=== PATIENT | male | born 1965 | race Caucasian/White ===

== ENCOUNTER 2017-03-13 17:19 | Emergency (ER) | payer BC ==
[2017-03-13 17:26] VITALS: BP 163/103; PULSE 98; TEMP 98.5; BMI 28.6
--- NOTE | 2017-03-13 17:36 | PDOC ---
History of Present Illness - General Chief Complaint: Laceration Stated Complaint: LEFT HAND INJURY Time Seen by Provider: 03/13/17 17:35 Past History - Past Medical History Allergies/Adverse Reactions: Allergies Allergy/AdvReac Type Severity Reaction Status Date / Time No Known Drug Allergies Allergy Verified 03/13/17 17:26 Home Medications: Ambulatory Orders Diphenhydramine HCl [Benadryl Capsule -] 25 mg PO HS 02/13/16 [place]-3 Acid Ethyl Esters [Lovaza -] 1 gm PO HS 02/13/16 Ibuprofen 800 mg PO PRN PRN 02/18/16 Oxycodone HCl/Acetaminophen [Percocet 5-325 mg Tablet -] 1 - 2 tab PO Q6H #60 tab MDD 8 02/18/16 - Surgical History Appendectomy: Yes Orthopedic Surgery: Yes (LEFT SHOULDER) - Psycho/Social/Smoking Cessation Hx Suicidal Ideation: No Smoking History: Never smoked Have you smoked in the past 12 months: No If you are a former smoker, when did you quit?: 15YRS Hx Alcohol Use: Yes (SOCIAL) Drug/Substance Use Hx: No Substance Use Type: None Hx Substance Use Treatment: No *Physical Exam - Vital Signs Last Vital Signs Temp Pulse Resp BP Pulse Ox 98.5 F 98 H 20 163/103 98 03/13/17 17:23 03/13/17 17:23 03/13/17 17:23 03/13/17 17:23 03/13/17 17:23
[2017-03-13] MEDS ORDERED: DIPHTH,PERTUSS(ACELL),TET 0.5 ML DISP.SYRIN IM ONE (17:48)
--- NOTE | 2017-03-13 18:32 | PDOC ---
Attending Attestation - Resident Resident Name: Amber Shannon - HPI HPI: 03/13/17 18:28 51 yo male sustained a linear 2.6 cm on the volar surface of his left thumb and a very superficial laceration on the right thumb that was closed w dermabond -tetanus is up to date - Physicial Exam PE: 03/13/17 18:32 2.6cm linear laceration to the tip of left thumb -NO neurovacular deficits -bleeding controlled -cap refill < 2 seconds - Medical Decision Making 03/13/17 18:33 wound cleansed w sterile saline closed with 4.0 proline discharged home
--- NOTE | 2017-03-13 18:40 | PDOC ---
History of Present Illness - General Chief Complaint: Laceration Stated Complaint: LEFT HAND INJURY Time Seen by Provider: 03/13/17 17:35 History Source: Patient Exam Limitations: No Limitations - History of Present Illness Initial Comments: 51 yo male with noncontributory PMH presents 30 minutes after cutting both thumb pads on an open tuna can. He was rinsing the can when he accidentally gripped it too hard and it slipped, lacerating his left thumb in a 2-3 cm laceration, and causing a 0.5 cm avulsion on the right thumb. The left thumb bled until he arrived here in the ED. He denies any numbness, tingling, or weakness in either thumb, and denies any additional injuries. He does not believe any debris got into either wound. He has no h/o bleeding disorders, and cannot remember the exact date of his last tetanus immunization but believes he is up to date. Past History - Past Medical History Allergies/Adverse Reactions: Allergies Allergy/AdvReac Type Severity Reaction Status Date / Time No Known Drug Allergies Allergy Verified 03/13/17 17:26 Home Medications: Ambulatory Orders Diphenhydramine HCl [Benadryl Capsule -] 25 mg PO HS 02/13/16 [place]-3 Acid Ethyl Esters [Lovaza -] 1 gm PO HS 02/13/16 Ibuprofen 800 mg PO PRN PRN 02/18/16 Oxycodone HCl/Acetaminophen [Percocet 5-325 mg Tablet -] 1 - 2 tab PO Q6H #60 tab MDD 8 02/18/16 - Surgical History Appendectomy: Yes Orthopedic Surgery: Yes (LEFT SHOULDER) - Psycho/Social/Smoking Cessation Hx Suicidal Ideation: No Smoking History: Never smoked Have you smoked in the past 12 months: No If you are a former smoker, when did you quit?: 15YRS Hx Alcohol Use: Yes (SOCIAL) Drug/Substance Use Hx: No Substance Use Type: None Hx Substance Use Treatment: No Review of Systems - Review of Systems Able to Perform ROS?: Yes Constitutional: No: Chills, Fever, Unexplained wgt Loss HEENTM: No: Nose Congestion, Throat Pain Respiratory: No: Cough, Shortness of Breath Cardiac (ROS): No: Chest Pain, Palpitations ABD/GI: No: Constipated, Diarrhea, Nausea, Vomiting : No: Burning, Dysuria Musculoskeletal: No: Back Pain, Neck Pain Integumentary: Yes: Other (left thumb laceration, right thumb skin tear). No: Bruising, Rash Neurological: No: Headache, Numbness, Tingling, Weakness, Dizziness Endocrine: No: Unexplained Weight Gain, Unexplained Weight Loss *Physical Exam - Vital Signs Last Vital Signs Temp Pulse Resp BP Pulse Ox 98.5 F 98 H 20 163/103 98 03/13/17 17:23 03/13/17 17:23 03/13/17 17:23 03/13/17 17:23 03/13/17 17:23 - Physical Exam General Appearance: Yes: Nourished. No: Apparent Distress HEENT: positive: EOMI, Normal Voice, Hearing Grossly Normal. negative: Scleral Icterus (R), Scleral Icterus (L), Nasal Congestion Neck: positive: Trachea midline, Supple. negative: Tender, Rigid Respiratory/Chest: positive: Lungs Clear, Normal Breath Sounds. negative: Respiratory Distress, Crackles, Rhonchi, Stridor, Wheezing Cardiovascular: positive: Regular Rhythm, Regular Rate. negative: Murmur Gastrointestinal/Abdominal: positive: Normal Bowel Sounds, Soft. negative: Tender, Organomegaly, Pulsatile Mass, Guarding Musculoskeletal: positive: Normal Inspection. negative: Decreased Range of Motion, Vertebral Tenderness Extremity: positive: Normal Capillary Refill, Normal Inspection, Normal Range of Motion. negative: Tender, Cyanosis Integumentary: positive: Normal Color, Dry, Warm, Other (2.6 cm partial thickness linear laceration to left thumb pad without involvement of the nail or nailbed, 0.5 x 0.3 cm superficial skin avulsion to right thumb pad, both are hemostatic). negative: Erythema, Rash, Bruising Neurologic: positive: internal control consultant II-XII NML intact, Fully Oriented, Alert, Normal Mood/ Affect, Normal Response, Motor Strength 5/5, Other (radial, median, and ulnar nerves intact, sensation intact to all fingertips and thumbs) Procedures - Laceration/Wound Repair Left Anterior 1st digit Wound Length: 2.6 to 5.0 cm Wound Explored: clean, no foreign body present Wound's Depth, Shape: linear Irrigated w/ Saline: Yes Betadine Prep: No Anesthesia: 1% Lidocaine Amount of Anesthetic (ccs): 3 Wound Repaired With: Sutures Suture Size/Type: 4:0, proline Number of Sutures: 5 Layer Closure: No ED Treatment Course - Medications Given in the ED: ED Medications Discontinued Medications Generic Name Dose Route Start Last Admin Trade Name Kei PRN Reason Stop Dose Admin Diphtheria/Tetanus/Acell Pertussis 0.5 ml 03/13/17 17:48 03/13/17 18:07 Boostrix - IM 03/13/17 17:49 0.5 ml .ONCE ONE Administration Medical Decision Making - Medical Decision Making 51 yo male with 2.6 cm laceration to left thumb pad. Partial thickness and requiring laceration repair. Pt is neurovascularly intact before procedure. Tetanus is updated. Left thumb laceration anesthetized and repaired with #5 4-0 Prolene without issue. Pt tolerated the procedure well. Good cap refill and still neurovascularly intact after procedure. Discharged home with wound care instructions. *DC/Admit/Observation/Transfer Diagnosis at time of Disposition: Laceration of thumb without complication Qualifiers: Encounter type: initial encounter Laterality: left Qualified Code(s): S61.012A - Laceration without foreign body of left thumb without damage to nail, initial encounter - Discharge Dispostion Disposition: HOME Condition at time of disposition: Stable Admit: No - Patient Instructions Printed Discharge Instructions: DI for Laceration Repair Additional Instructions: You were seen today for a left thumb laceration and a small right thumb skin tear. We repaired the left thumb laceration with 5 non-absorbable sutures, and we put glue and a steri-strip on the right thumb skin tear. We also gave you a tetanus shot. Please keep the cuts clean and dry. You can bandage them during the day, but be sure to let them air out at night. Please see your PCP to have the sutures removed in 10-14 days, or come back to the emergency room for any swelling, increased pain, drainage of pus, redness, fever, or signs of infection. You can put bacitracin on the left thumb as well. - Attestations Physician Attestion: 03/13/17 19:38 I, Dr. Amber Shannon, attest that this document has been prepared under my direction and personally reviewed by me in its entirety. I further attest, that it accurately reflects all work, treatment, procedures and medical decision -making performed by me.
== END 2017-03-13 19:00 | disposition home or self-care (01) ==
LOC: JERFT 17:19
PROC: 0HQGXZZ Repair Left Hand Skin, External Approach (ICD-10-PCS; principal; 2017-03-13)
PROC: 3E0234Z Introduction of Serum, Toxoid and Vaccine into Muscle, Percutaneous Approach (ICD-10-PCS; 2017-03-13)
DX: S61.012A Laceration without foreign body of left thumb without damage to nail, initial encounter (principal); W26.8XXA Contact with other sharp object(s), not elsewhere classified, initial encounter; Y93.G1 Activity, food preparation and clean up; Y92.010 Kitchen of single-family (private) house as the place of occurrence of the external cause
CPT/HCPCS: 90715; 99281-25

== ENCOUNTER 2018-10-09 19:07 | Emergency (ER) | payer BC ==
--- NOTE | 2018-10-09 19:19 | PDOC ---
History of Present Illness - General History Source: Patient Exam Limitations: No Limitations - History of Present Illness Initial Comments: 10/09/18 19:49 The patient is a 52 year old male, with no significant past medical history of who presents to the emergency department with 3 episodes of severe right flank pain that radiates from the lower abdomen to the back. The patient reports these symptoms started a month ago but would go away after a few days, however, patient notes his symptoms started heavy again yesterday and feel like cramping pain. The patient notes the pain is associated with dysuria. The patient notes the pain is so severe that he can not cough or use the bathroom. The patient notes the pain is worsened with movement and deep breathing. The patient denies chest pain, shortness of breath, headache or dizziness. The patient denies fever, chills, diarrhea or constipation. The patient denies frequency, urgency and hematuria. Allergies: NKA Past surgical history: Appendectomy and Orthopedic Surgery (L shoulder) Social history: Occasional alcohol use. No tobacco use (quit 15 years ago) PCP: Dr. Henrry Ortiz <Grace Balbuena - Last Filed: 10/09/18 23:00> <Ciara Lee - Last Filed: 10/10/18 01:14> - General Chief Complaint: Pain Stated Complaint: RIGHT FLANK PAIN Time Seen by Provider: 10/09/18 19:14 Past History <Grace Balbuena - Last Filed: 10/09/18 23:00> - Surgical History Appendectomy: Yes Orthopedic Surgery: Yes (LEFT SHOULDER) - Suicide/Smoking/Psychosocial Hx Smoking History: Never smoked Have you smoked in the past 12 months: No If you are a former smoker, when did you quit?: 15YRS Hx Alcohol Use: Yes (SOCIAL) Drug/Substance Use Hx: No Substance Use Type: None Hx Substance Use Treatment: No <Ciara Lee - Last Filed: 10/10/18 01:14> - Past Medical History Allergies/Adverse Reactions: Allergies Allergy/AdvReac Type Severity Reaction Status Date / Time No Known Drug Allergies Allergy Verified 10/09/18 19:16 Home Medications: Ambulatory Orders Amox-Tr/K Cl [Augmentin - 875Mg Tablet] 1 tab PO BID #20 tablet 10/09/18 Review of Systems - Review of Systems Able to Perform ROS?: Yes Comments:: 10/09/18 19:59 GENERAL/CONSTITUTIONAL: No fever or chills. No weakness. HEAD, EYES, EARS, NOSE AND THROAT: No change in vision. No ear pain or discharge. No sore throat. CARDIOVASCULAR: No chest pain or shortness of breath. RESPIRATORY: No cough, wheezing, or hemoptysis. GASTROINTESTINAL: (+) nausea, (+)vomiting. No diarrhea or constipation. GENITOURINARY:(+) dysuria. No frequency, or change in urination. MUSCULOSKELETAL: (+) right flank pain. No joint or muscle swelling. No neck pain. SKIN: No rash NEUROLOGIC: No headache, vertigo, loss of consciousness, or change in strength/ sensation. ENDOCRINE: No increased thirst. No abnormal weight change. HEMATOLOGIC/LYMPHATIC: No anemia, easy bleeding, or history of blood clots. ALLERGIC/IMMUNOLOGIC: No hives or skin allergy. All Other Systems: Reviewed and Negative <Grace Balbuena - Last Filed: 10/09/18 23:00> *Physical Exam - Vital Signs Last Vital Signs Temp Pulse Resp BP Pulse Ox 98.4 F 120 H 18 150/87 97 10/09/18 19:14 10/09/18 19:14 10/09/18 19:14 10/09/18 19:14 10/09/18 19:14 - Physical Exam Comments: 10/09/18 19:59 GENERAL: Awake, alert, and fully oriented, in no acute distress HEAD: No signs of trauma EYES: PERRLA, EOMI, sclera anicteric, conjunctiva clear ENT: Auricles normal inspection, hearing grossly normal, nares patent, oropharynx clear without exudates. Moist mucosa NECK: Normal ROM, supple, no lymphadenopathy, JVD, or masses LUNGS: Breath sounds equal, clear to auscultation bilaterally. No wheezes, and no crackles HEART: Regular rate and rhythm, normal S1 and S2, no murmurs, rubs or gallops ABDOMEN: (+) moderat Periumbilical tenderness with positive rebound tenderness. Soft, nontender, normoactive bowel sounds. No guarding. No masses EXTREMITIES:(+) tri ankle edema bilaterally. Normal range of motion, No clubbing or cyanosis. No cords, erythema, or tenderness NEUROLOGICAL: Cranial nerves II through XII grossly intact. Normal speech, normal gait SKIN: Warm, Dry, normal turgor, no rashes or lesions noted. <Grace Balbuena - Last Filed: 10/09/18 23:00> Moderate Sedation - Procedure Monitoring Vital Signs: Procedure Monitoring Vital Signs Temperature 98.4 F 10/09/18 19:14 Pulse Rate 120 H 10/09/18 19:14 Respiratory Rate 18 10/09/18 19:14 Blood Pressure 150/87 10/09/18 19:14 O2 Sat by Pulse Oximetry (%) 97 10/09/18 19:14 <Grace Balbuena - Last Filed: 10/09/18 23:00> ED Treatment Course - LABORATORY CBC & Chemistry Diagram: 10/09/18 19:48 10/09/18 19:48 - ADDITIONAL ORDERS Additional order review: Laboratory Results 10/09/18 19:23 Urine Color Yellow Urine Appearance Clear Urine pH 6.0 Ur Specific [place] 1.025 Urine Protein Negative Urine Glucose (UA) Negative Urine Ketones Negative Urine Blood Negative Urine Nitrite Negative Urine Bilirubin Negative Urine Urobilinogen 0.2 Ur Leukocyte Esterase Negative <Grace Balbuena - Last Filed: 10/09/18 23:00> - LABORATORY CBC & Chemistry Diagram: 10/09/18 19:48 10/09/18 19:48 <Ciara Lee - Last Filed: 10/10/18 01:14> Progress Note - Progress Note Progress Note: Documentation has been prepared under my direction and personally reviewed by me in its entirety. I attest that this documented accurately reflects all work, treatment, procedures and medical decision making performed by me. <Ciara Lee - Last Filed: 10/10/18 01:14> Medical Decision Making - Medical Decision Making As noted above, this 52-year-old man presents with intermittent abdominal pain for the last 3 weeks. Previous episodes resolve spontaneously but patient had recurrent, severe right flank to mid abdominal pain starting yesterday. No previous episode of this type of pain in the denies any previous gastrointestinal issues. Exam as noted. 1 L or normal saline IV given along with 30 mg of Toradol IV for pain control Laboratory evaluation is essentially normal, except for mild prerenal azotemia ( BUN 22/cre1) and mild elevation of ALT (65) Abdominal/pelvic CT with IV contrast performed: Interpretation by Dr. Lee of the radiology staff revealed uncomplicated acute sigmoid diverticulitis area no evidence of abscess or perforation. Results discussed with the patient and his . He is currently comfortable and has no nausea. He is a good candidate for outpatient treatment of his non- complicated acute diverticulitis episode. Patient has no known ALLERGIES or adverse effects from any antibiotic. Patient will be started on Augmentin 875/ 125 twice a day for 10 days. First dose was given here in the emergency room. Patient's has been seen in the past by Dr. Meredith for gastroenterology. Referral information provided to the patient; patient should follow-up within the next 5-7 days. If he has any worsening of pain, high fever or vomiting, should return to the emergency room. <iCara Lee - Last Filed: 10/10/18 01:14> *DC/Admit/Observation/Transfer - Attestations Scribe Attestion: 10/09/18 19:59 Documentation prepared by Grace Balbuena, acting as medical pathology teacher for Ciara Lee MD <Grace Balbuena - Last Filed: 10/09/18 23:00> <Ciara Lee - Last Filed: 10/10/18 01:14> Diagnosis at time of Disposition: Acute diverticulitis - Discharge Dispostion Disposition: HOME Condition at time of disposition: Stable - Prescriptions Prescriptions: Amox-Tr/K Cl [Augmentin - 875Mg Tablet] 1 tab PO BID #20 tablet - Referrals Referrals: Nancy Meredith MD [Staff Physician] - 1 week - Patient Instructions Printed Discharge Instructions: Diverticulitis Additional Instructions: Rest; drink plenty fluids Diet as tolerated; avoid complex, high fat foods Augmentin 875/125 twice a day for 10 days; take with food Ibuprofen/acetaminophen/naproxen as needed for pain Return to ER if you have severe, persistent pain/high fever/vomiting Follow-up with Dr Meredith within the next 7 days - Post Discharge Activity
[2018-10-09 19:30] LABS: URINE APPEARANCE Clear; URINE BILIRUBIN Negative (NEGATIVE); URINE COLOR Yellow; URINE GLUCOSE (UA) Negative (NEGATIVE); URINE KETONE Negative (NEGATIVE); URINE LEUK ESTERASE Negative (NEGATIVE); URINE NITRITE Negative (NEGATIVE); URINE PROTEIN Negative (NEGATIVE); URINE UROBILINOGEN 0.2 (0.2-1.0)
[2018-10-09 19:33] VITALS: TEMP 98.4; BMI 27.3
[2018-10-09] MEDS ORDERED: SODIUM CHLORIDE 1,000 ML IV STA (19:37)
[2018-10-09] MEDS ORDERED: KETOROLAC TROMETHAMINE 30 MG/1 ML VIAL IVPUSH ONE (19:37)
[2018-10-09] MEDS ORDERED: KETOROLAC TROMETHAMINE 30 MG/1 ML VIAL ONE (19:49)
[2018-10-09 20:07] LABS: BASO % 1.5 % (0-2.0); EOS % 0.2 % (0-4.5); HEMATOCRIT 45.5 % (35.4-49); HEMOGLOBIN 15.2 GM/dl (11.7-16.9); LYMPH % 15.3 % (8-40); MCH 31.7 pg (25.7-33.7); MCHC 33.4 g/dl (32.0-35.9); MEAN PLT VOLUME 8.1 fl (7.5-11.1); MONO % 6.1 % (3.8-10.2); NEUT % 76.9 % (42.8-82.8); PLATELET COUNT 201 K/MM3 (134-434); RBC 4.79 M/mm3 (4.00-5.60); RDW 12.2 % (11.9-15.9); WHITE BLOOD COUNT 9.1 K/mm3 (4.0-10.8)
[2018-10-09 20:15] LABS: INR 1.22 (0.82-1.09); PROTHROMBIN TIME (PATIENT) 13.6 SEC (10.2-13.0)
[2018-10-09 20:16] LABS: ALBUMIN 4.1 g/dl (3.4-5.0); ALK PHOS 22 U/L (45-117); ANION GAP 6 MMOL/L (8-16); BILIRUBIN,TOTAL 0.8 mg/dl (0.2-1); BLOOD UREA NITROGEN 20 mg/dl (7-18); CHLORIDE 99 mmol/L (98-107); CO2 30 mmol/L (21-32); CREATININE 1.1 mg/dl (0.55-1.3); GLUCOSE,RANDOM 105 mg/dl (74-106); POTASSIUM 3.6 mmol/L (3.5-5.1); SGOT/AST 25 U/L (15-37); SGPT/ALT 63 U/L (13-61); SODIUM 135 mmol/L (136-145); TOT PROT 6.9 g/dl (6.4-8.2)
[2018-10-09 21:19] LABS: LIPASE 133 U/L (73-393)
[2018-10-09] MEDS ORDERED: cefTRIAXone SODIUM 1 GM VIAL ONE (21:58)
[2018-10-09] MEDS ORDERED: CEFTRIAXONE 1,000 MG in DEXTROSE 5%-WATER - 50 ML IVPB ONE (22:06)
[2018-10-09 22:19] VITALS: BP 131/87; PULSE 84
== END 2018-10-09 22:53 | disposition home or self-care (01) ==
LOC: FER 19:07
PROC: 3E03329 Introduction of Other Anti-infective into Peripheral Vein, Percutaneous Approach (ICD-10-PCS; principal; 2018-10-09)
PROC: 3E0333Z Introduction of Anti-inflammatory into Peripheral Vein, Percutaneous Approach (ICD-10-PCS; 2018-10-09)
PROC: 3E0337Z Introduction of Electrolytic and Water Balance Substance into Peripheral Vein, Percutaneous Approach (ICD-10-PCS; 2018-10-09)
DX: K57.92 Diverticulitis of intestine, part unspecified, without perforation or abscess without bleeding (principal)
CPT/HCPCS: 36415; 74177-TC; 80053; 81003; 82150; 83690; 85025; 85610; 99282-25; J7030

== ENCOUNTER 2021-08-13 02:19 | Emergency (ER) | payer BC ==
[2021-08-13 02:51] VITALS: BP 149/89; PULSE 88; TEMP 98.8; BMI 28.1
== END 2021-08-13 04:32 | disposition home or self-care (01) ==
LOC: JER 02:19
DX: G47.00 Insomnia, unspecified (principal); U09.9 Post COVID-19 condition, unspecified
CPT/HCPCS: 87804; 87807; 93005; 93010; 99284-25; C9803; U0003; U0005

== ENCOUNTER 2022-05-17 11:54 | Emergency (ER) | payer BC ==
[2022-05-17 12:10] VITALS: BP 154/91; PULSE 85; RESP 20; TEMP 99.6; BMI 28.1
[2022-05-17 12:51] LABS: INR 0.97 (0.83-1.09); PROTHROMBIN TIME (PATIENT) 11.2 SEC (9.7-13.0)
[2022-05-17 12:53] LABS: ACTIVATED PTT 30.7 SECONDS (25.2-36.5)
[2022-05-17 12:58] LABS: BILIRUBIN,TOTAL 0.7 mg/dl (0.2-1); TOT PROT 6.7 g/dl (6.4-8.2)
[2022-05-17 13:21] LABS: HEMATOCRIT 50.3 % (35.4-49); HEMOGLOBIN 17.7 G/dL (11.7-16.9); MCH 33.2 pg (25.7-33.7); MCHC 35.1 g/dl (32.0-35.9); MEAN CELL VOLUME 94.6 fl (80-96); MEAN PLT VOLUME 7.7 fl (7.5-11.1); PLATELET COUNT 165.7 10^3/uL (134-434); RBC 5.32 10^6/uL (4.00-5.60); RDW 13.1 % (11.9-15.9); WHITE BLOOD COUNT 6.5 10^3/uL (4.0-10.8)
[2022-05-17] MEDS ORDERED: SODIUM CHLORIDE 1,000 ML IV STA (13:56)
[2022-05-17 15:28] LABS: PLATELET ESTIMATE ADEQUATE
== END 2022-05-17 15:21 | disposition home or self-care (01) ==
LOC: FER 11:54
DX: R07.9 Chest pain, unspecified (principal); R20.2 Paresthesia of skin; R42 Dizziness and giddiness
CPT/HCPCS: 36415; 70450-TC; 71045-TC-FY; 80053; 84484; 85027; 85610; 85730; 93005; 99285-25; C9803-CS; U0003; U0005

== ENCOUNTER 2024-09-27 18:47 | Observation (INO) | payer BC ==
[2024-09-27] MEDS: SODIUM CHLORIDE 0.9% 500 ML INFUS.BAG IV ONE (20:21)
[2024-09-27 20:25] LABS: BASO % 0.6 % (0-2.0); EOS % 1.2 % (0-4.5); HEMATOCRIT 45.7 % (35.4-49); LYMPH % 26.7 % (8-40); MCH 32.1 pg (25.7-33.7); MEAN CELL VOLUME 91.7 fl (80-96); MEAN PLT VOLUME 7.6 fl (7.5-11.1); MONO % 6.4 % (3.8-10.2); NEUT % 65.1 % (42.8-82.8); PLATELET COUNT 208 10^3/uL (134-434); RBC 4.99 M/mm3 (4.00-5.60); RDW 12.9 % (11.9-15.9); WHITE BLOOD COUNT 8.2 K/mm3 (4.0-10.0)
[2024-09-27 20:28] LABS: INR 1.05 (0.83-1.09); PROTHROMBIN TIME (PATIENT) 11.6 SEC (9.7-13.0)
[2024-09-27 20:30] LABS: ACTIVATED PTT 29.7 SECONDS (25.2-36.5)
[2024-09-27 20:45] LABS: POTASSIUM 3.6 mmol/L (3.5-5.1)
[2024-09-27 20:49] LABS: ALBUMIN 3.8 g/dl (3.4-5.0); BLOOD UREA NITROGEN 19.3 mg/dL (7-18)
[2024-09-27 20:54] LABS: BILIRUBIN,TOTAL 0.5 mg/dL (0.2-1); TOT PROT 6.7 g/dl (6.4-8.2)
[2024-09-27 21:39] LABS: HIV INTERPRETATION NEGATIVE (NEGATIVE)
[2024-09-27] MEDS: DEXTROSE 5%-0.45% SALINE 1,000 ML IV SCH (22:21)
[2024-09-28] MEDS: amLODIPine BESYLATE 5 MG TABLET (FP) PO ONE (03:09)
[2024-09-28 03:26] VITALS: RESP 19; BMI 29.2
[2024-09-28 08:20] LABS: BASO % 0.4 % (0-2.0); EOS % 1.3 % (0-4.5); HEMATOCRIT 44.5 % (35.4-49); HEMOGLOBIN 15.1 GM/dL (11.7-16.9); LYMPH % 31.7 % (8-40); MCH 31.8 pg (25.7-33.7); MCHC 33.9 g/dl (32.0-35.9); MEAN CELL VOLUME 93.6 fl (80-96); MONO % 6.9 % (3.8-10.2); NEUT % 59.7 % (42.8-82.8); PLATELET COUNT 185 10^3/uL (134-434); RBC 4.75 M/mm3 (4.00-5.60); WHITE BLOOD COUNT 6.8 K/mm3 (4.0-10.0)
[2024-09-28 08:28] LABS: POTASSIUM 3.6 mmol/L (3.5-5.1)
[2024-09-28 08:29] LABS: CALCIUM 8.1 mg/dL (8.5-10.1)
[2024-09-28 08:30] LABS: BLOOD UREA NITROGEN 16.7 mg/dL (7-18)
[2024-09-28 08:33] LABS: CREATININE 0.9 mg/dL (0.55-1.3)
[2024-09-28 14:48] VITALS: BP 142/94; PULSE 89; TEMP 98.2
[2024-09-29] MEDS ORDERED: TAMSULOSIN HCL 0.4 MG CAP PO SCH (08:30)
== END 2024-09-28 17:25 | disposition home or self-care (01) ==
LOC: JER 18:47 → JERBED 20:20 → J8W 09-28 00:26
PROVIDERS: ADMIT Internal Medicine; ATTEND Family Medicine
PROC: 3E0337Z Introduction of Electrolytic and Water Balance Substance into Peripheral Vein, Percutaneous Approach (ICD-10-PCS; principal; 2024-09-27)
DX: K62.5 Hemorrhage of anus and rectum (principal); I10 Essential (primary) hypertension; N40.0 Benign prostatic hyperplasia without lower urinary tract symptoms; Z90.49 Acquired absence of other specified parts of digestive tract; Z87.891 Personal history of nicotine dependence
CPT/HCPCS: 36415; 80048; 80053; 82272; 85025; 85610; 85730; 86803; 86850; 86900; 86901; 87389; 93005; 93010; 99285-25; G0378